=== PATIENT | male | born 1940 | race Caucasian/White ===

== ENCOUNTER 2021-09-23 11:53 | Observation (INO) | payer MEDICARE, OTHER ==
[2021-09-23 13:35] LABS: #Eosinphils 0.1 10x3/uL (0.0-0.5); #Monocytes 0.3 10x3/uL (0.0-1.1); #Neutrophils 6.2 10x3/uL (1.5-8.4); %Basophils 0.1 % (0.0-2.0); %Eosinophils 1.1 % (0.0-6.0); %Lymphocytes 5.9 % (18.0-47.0); %Monocytes 3.9 % (0.0-10.0); %Neutrophils 88.7 % (40.0-75.0); Hemoglobin 14.4 g/dL (13.5-17.5); Mean Corpuscular HGB CONC 33.9 g/dL (32.0-36.0); Mean Corpuscular Hemoglobin 33.1 pg (27.0-33.0); Mean Corpuscular Volume 97.7 fl (81.2-95.1); Mean Platelet Volume 11.1 fl (7.4-10.4); Platelet Count 178 10x3/uL (150-450); RBC Distribution Width 12.8 % (11.5-14.5); Red Blood Cell (RBC) Count 4.35 10x6/uL (4.32-5.72)
[2021-09-23 15:17] LABS: ALT (SGPT) 17 U/L (8-55); AST (SGOT) 20 U/L (5-34); Albumin 4.1 g/dL (3.4-4.8); Alkaline Phosphatase 58 U/L (40-110); Anion Gap 13 mmol/L (10-20); BUN (Urea Nitrogen) 27 mg/dL (8.4-25.7); Bilirubin, Total 0.8 mg/dL (0.2-1.2); CK (CPK) 48 U/L (30-200); Calc. Creatinine Clearance 0 mL/min (70-130); Calcium 9.2 mg/dL (7.8-10.44); Carbon Dioxide 25 mmol/L (23-31); Chloride 99 mmol/L (98-107); Globulin 4.6 g/dL (2.4-3.5); Glucose 98 mg/dL (83-110); Potassium 4.3 mmol/L (3.5-5.1); Protein, Total 8.7 g/dL (5.8-8.1); Sodium 133 mmol/L (136-145)
[2021-09-23] MEDS ORDERED: Ondansetron PF 4 MG/2 ML Vial IVP PRN (15:49)
[2021-09-23] MEDS ORDERED: Acetaminophen 325 MG TAB PO PRN (15:49)
[2021-09-23] MEDS ORDERED: Sodium Chloride 0.9% 1,000 ML IV SCH (16:00)
[2021-09-23] MEDS ORDERED: Zolpidem Tartrate 5 MG TAB PO PRN (16:11)
[2021-09-23 16:49] LABS: Troponin I Less than 0.010 ng/mL (< 0.028)
[2021-09-23 18:18] VITALS: BMI 27.6
[2021-09-23 21:52] LABS: Bilirubin Neg (Negative); Blood, Urine Negative (Negative); Clarity Clear (Clear); Glucose, Urine (Dipstick) Normal (Negative); Ketone, Urine Negative (Negative); Leukocyte Negative (Negative); Nitrite Negative (Negative); Protein, Urine (Dipstick) Negative (Neg-Trace); Urobilinogen Normal mg/dL (Less than 2)
[2021-09-23 21:57] LABS: Urine Culture Reflex No No
[2021-09-23 22:14] LABS: Bacteria/HPF None Seen HPF (None Seen); RBC/HPF 0-3 HPF (0-3); Squamous Epithelial None Seen HPF (0-3); WBC/HPF 0-3 HPF (0-3)
[2021-09-23 22:24] LABS: Troponin I Less than 0.010 ng/mL (< 0.028)
[2021-09-24 04:32] LABS: #Eosinphils 0.2 10x3/uL (0.0-0.5); #Monocytes 0.5 10x3/uL (0.0-1.1); #Neutrophils 3.5 10x3/uL (1.5-8.4); %Basophils 0.4 % (0.0-2.0); %Eosinophils 3.6 % (0.0-6.0); %Lymphocytes 19.7 % (18.0-47.0); %Monocytes 9.8 % (0.0-10.0); %Neutrophils 66.3 % (40.0-75.0); Hemoglobin 12.6 g/dL (13.5-17.5); Mean Corpuscular HGB CONC 33.9 g/dL (32.0-36.0); Mean Corpuscular Hemoglobin 32.3 pg (27.0-33.0); Mean Corpuscular Volume 95.4 fl (81.2-95.1); Mean Platelet Volume 11.2 fl (7.4-10.4); Platelet Count 152 10x3/uL (150-450); RBC Distribution Width 12.8 % (11.5-14.5); White Blood Cell (WBC) Count 5.3 10x3/uL (3.5-10.5)
[2021-09-24 04:57] LABS: Anion Gap 15 mmol/L (10-20); BUN (Urea Nitrogen) 23 mg/dL (8.4-25.7); Calc. Creatinine Clearance 50 mL/min (70-130); Calcium 8.6 mg/dL (7.8-10.44); Carbon Dioxide 22 mmol/L (23-31); Chloride 107 mmol/L (98-107); Glucose 89 mg/dL (83-110); Sodium 140 mmol/L (136-145)
[2021-09-24] MEDS ORDERED: Aspirin 325 MG TAB PO SCH (09:00)
[2021-09-24] MEDS ORDERED: Losartan 25 MG TAB PO SCH (14:15)
[2021-09-24 17:05] VITALS: BP 165/81; TEMP 97.8
[2021-09-24 19:50] LABS: SARS-CoV-2 PCR by NAA Not Detected (NotDetected)
[2021-09-25] MEDS ORDERED: Losartan 25 MG TAB PO SCH (09:00)
== END 2021-09-24 18:55 | disposition home or self-care (01) ==
LOC: CSHERS 11:53 → CSHTELE 17:56
PROVIDERS: ADMIT Internal Medicine; ATTEND Physician Assistant Medical
DX: R55 Syncope and collapse (principal); I12.9 Hypertensive chronic kidney disease with stage 1 through stage 4 chronic kidney disease, or unspecified chronic kidney disease; N18.30 Chronic kidney disease, stage 3 unspecified; E87.1 Hypo-osmolality and hyponatremia; Z79.82 Long term (current) use of aspirin; Z79.899 Other long term (current) drug therapy; F32.A Depression, unspecified; Z20.822 Contact with and (suspected) exposure to COVID-19
CPT/HCPCS: 71045; 80048; 81001; 82550; 83880; 84484 ×2; 85025; 85379; 93005; 93306; 97139; 99285; G0378 ×2; U0003; U0005; 36415; 80053; 84443; J7050